=== PATIENT | male | born 1960 | race Caucasian/White ===

== ENCOUNTER 2021-03-25 20:58 | Inpatient (IN) | payer OTHER ==
[~2021-03-25] VITALS: Ht 172.7 cm; Wt 98.0 kg
--- NOTE | ~2021-03-25 | O ---
[facility] [place] [address] OPERATIVE REPORT Name: CHRISTY GARZON Room #: 458-P [facility] IN M.R.#: [id number] Admission: 03/25/21 Attend Phys: Elicia Ricardo MD Discharge: Date of : 56 Report #: [id number] THIS REPORT FOR: cc: Gerson Amaro,Jen Watts MD ~ DATE OF SERVICE: 03/27/2021 SURGEON: Jen Laureano MD SYSTEM SAFETY MANAGER: None. PREOPERATIVE DIAGNOSIS: Right distal ureteral stone, intractable pain. POSTOPERATIVE DIAGNOSIS: Right distal ureteral stone, intractable pain. PROCEDURE PERFORMED: 1. Cystoscopy. 2. Right retrograde pyelogram. 3. Balloon dilation of right distal ureter. 4. Right ureteroscopy with basket stone extraction. 5. Left double-J ureteral stent placement. ESTIMATED BLOOD LOSS: None. SPECIMENS: Right ureteral stone. COMPLICATIONS: None. DRAINS: A 6 x 26 double-J ureteral stent. NARRATIVE OF EVENTS: After proper patient identification and informed consent was obtained, the patient was brought to the operative suite and anesthesia was induced. He was prepped and draped in the usual sterile fashion in dorsal lithotomy position. After a surgical time-out, we began for rigid cystoscopy. He had a mild meatal stenosis, which I dilated with the 17-Stateless sheath. I was then able to pass the inner lumen of the 22-Stateless sheath followed by the entire scope. The remainder of the urethra was unremarkable. The prostate showed mild bilobar hypertrophy and a high riding bladder neck. Upon entering the bladder, pancystoscopy was performed. Bladder mucosa was unremarkable. We turned our attention to the right ureteral orifice. An open-ended catheter was used to perform a retrograde study. This showed a filling defect in the distal ureter and hydronephrosis above that level. I then advanced a wire into the renal pelvis under fluoroscopy. Next, we then started semirigid ureteroscope. The UVJ was quite narrow and would not allow passage of the scope. I therefore used [facility] [address] [address] OPERATIVE REPORT Name: CHRISTY GARZON Room #: 458-P [facility] IN M.R.#: [id number] Admission: 03/25/21 Attend Phys: Elicia Ricardo MD Discharge: Date of : 56 Report #: [id number] a 15 x 4 dilating balloon and dilated the distal urethra. Following this, I placed the semirigid scope without difficulty. I identified a mehta-appearing calculus within the distal ureter. This was grasped with a basket and removed without difficulty. I then placed a 6 x 26 double-J ureteral stent. There was good curl of the stent in the renal pelvis as well as the bladder upon deployment. The dangle was removed. His bladder was drained. He tolerated the procedure well and was transferred to the recovery area in stable condition. By: [id number] Jen Laureano MD /neo
[~2021-03-25 20:58] MED LIST: AZOR 10-20 MG1 EACH PO; CENTRUM SILVER1 EAC4 PO; FENOFIBRATE160 MG PO; FLOMAX PO; IBUPROFEN 800800 M1 PO; LOSARTAN-HCTZ1 EAC1 PO; TOPROL XL25 MG PO; VICODIN 5-5001 EACH PO; ZOFRAN 4 MG ORAL4 M1 SUBLING
[2021-03-25 23:40] VITALS: BP 147/83
[2021-03-26] MEDS ORDERED: FENOFIBRATE54 MG PO (02:53)
[2021-03-26] MEDS ORDERED: ASPIRIN EC81 M1 PO (02:56)
[2021-03-26] MEDS ORDERED: HYDROCHLOROTH12.5 M1 PO (02:58)
[2021-03-26] MEDS ORDERED: LOSARTAN POTAS100 MG PO (03:06)
[2021-03-26] MEDS ORDERED: LEVO-T50 MCG PO (03:08)
[2021-03-26 08:25] VITALS: BP 140/77
[2021-03-26 10:09] LABS: ABSOLUTE NEUTROPHILS 6.2 thou/uL (1.4-8.2); BASOPHILS 0.6 % (0.0-2.0); EOSINOPHILS 1.6 % (0.0-3.0); HEMOGLOBIN 15.3 gm/dL (14.0-18.0); LYMPHOCYTES 22.5 % (24.0-44.0); MCHC 34.1 g/dL (28.0-37.0); MCV 87.9 fL (80.0-100.0); MONOCYTES 9.6 % (1.0-8.0); PLATELET COUNT 226 thou/uL (150-400); POLYS 65.7 % (36.0-66.0); RBC 5.11 mil/uL (4.50-6.00); WBC 9.4 thou/uL (4.0-11.0)
[2021-03-26 10:22] LABS: ALBUMIN 3.8 g/dL (3.4-5.0); CALCIUM 8.4 mg/dL (8.5-10.1); CREATININE 1.5 mg/dL (0.7-1.3); POTASSIUM 3.4 mmol/L (3.5-5.1); TOTAL BILIRUBIN 0.5 mg/dL (0.2-1.0); TOTAL PROTEIN 7.3 g/dL (6.4-8.2)
[2021-03-26 10:23] LABS: INR 0.99; PROTIME 10.8 Seconds (10.5-12.1)
[2021-03-26 18:10] VITALS: BP 188/105
[2021-03-26 20:19] VITALS: BP 174/89
[2021-03-27] MEDS ORDERED: LOPRESSOR50 MG PO (00:23)
[2021-03-27 00:30] VITALS: BP 167/88
[2021-03-27] MEDS ORDERED: NORVASC 2.5 MG2.5 M1 PO (00:34)
[2021-03-27 06:29] LABS: HEMATOCRIT 42.3 % (42.0-52.0); HEMOGLOBIN 14.2 gm/dL (14.0-18.0); MCH 29.7 pg (26.0-34.0); MCHC 33.5 g/dL (28.0-37.0); MCV 88.7 fL (80.0-100.0); RBC 4.77 mil/uL (4.50-6.00); WBC 7.8 thou/uL (4.0-11.0)
[2021-03-27 06:42] LABS: CALCIUM 8.4 mg/dL (8.5-10.1); CREATININE 1.3 mg/dL (0.7-1.3); POTASSIUM 3.3 mmol/L (3.5-5.1)
[2021-03-27 08:30] VITALS: BP 184/105
[2021-03-27 09:48] LABS: URINE BILIRUBIN NEGATIVE (Negative); URINE BLOOD TRACE (Negative); URINE CLARITY CLEAR; URINE COLOR YELLOW; URINE GLUCOSE-RANDOM* NEGATIVE (Negative); URINE KETONES NEGATIVE (Negative); URINE LEUKOCYTES-REFLEX NEGATIVE (Negative); URINE NITRITE-REFLEX NEGATIVE (Negative); URINE PROTEIN (DIPSTICK) NEGATIVE (Negative); URINE UROBILINOGEN 0.2 E.U./dl (0.2-1.0)
[2021-03-27 15:15] VITALS: BP 151/83
[2021-03-27 16:40] VITALS: BP 135/70
[2021-03-27 19:58] VITALS: BP 156/84
[2021-03-28 07:41] VITALS: BP 133/66
[2021-03-28 10:09] LABS: CALCIUM 9.1 mg/dL (8.5-10.1); CREATININE 1.6 mg/dL (0.7-1.3); POTASSIUM 3.8 mmol/L (3.5-5.1)
[2021-03-28] MEDS ORDERED: LOPRESSOR50 MG PO (11:52)
[2021-03-28] MEDS ORDERED: AMLODIPINE BESY10 MG PO (11:52)
[2021-03-28] MEDS ORDERED: COZAAR 50 MG TA50 M1 PO (11:52)
[2021-03-28] MEDS ORDERED: HYDROCODON-ACE1 EAC7 PO (11:52)
[2021-03-28] MEDS ORDERED: KEFLEX250 MG PO (11:57)
[2021-03-28 12:18] VITALS: BP 133/66
--- NOTE | 2021-04-03 17:06 | PATH ---
[facility] [place] [address] PATHOLOGY RPT PROCEDURE Name: JAIME IGNACIO Room #: 458-P DIS IN M.R.#: [id number] Admission: 03/25/21 Date of : 56 Discharge: 03/28/21 Report #: [id number] Path Case #: [id number] [facility] Accession Number: [id number] . 01 Material submitted: . ureter - RIGHT URETERAL STONE. Modifiers: right . 02 Diagnosis: Right ureteral stone: - Consistent with calculi. - The specimen is sent out for further processing. - Report pending outside analysis with results to follow in an addendum. [facility] 03/29/2021 0729 Local . 02 Addendum: . Outside report received from [facility], [address] [place] [address], [place], [address], on case [id number], labeled with their number [id number], dated 04/03/2021. . Stone Analysis Report . Stone Composition Composition (percent) Calcium Oxalate Monohydrate 38 Calcium Oxalate Dihydrate 4 Calcium Phosphate Carbonate 58 TOTAL: 100 . The stone is 4.0 x 3.0 x 2.0 mm in size. It is emhta, cream, and brown in color and weighs less than 10 milligrams. THE CALCULUS IS COMPOSED OF A MIXTURE OF CALCIUM OXALATE MONOHYDRATE (WHEWELLITE), CALCIUM OXALATE DIHYDRATE (WEDDELITE) AND CALCIUM PHOSPHATE CARBONATE (CARBONATE-APATITE). . RIGHT URETERAL. Requisition received without date of collection. . . . Isma Becker MD Brick Offbearer . . A complete copy of the report is on file. . Technical and Professional services for the special studies performed by [facility], [address] [place] [address]. . (SWK:amj 04/03/2021) . [address] [address] PATHOLOGY RPT PROCEDURE Name: JAIME IGNACIO Room #: 458-P DIS IN M.R.#: [id number] Admission: 03/25/21 Date of : 56 Discharge: 03/28/21 Report #: [id number] Path Case #: [id number] AZJ/04/03/2021 Addendum Electronically Signed by Enrique Quinteros MD, Pathologist . 02 Electronically signed: . Enrique Quinteros MD, Pathologist NPI- [id number] . 01 Gross description: . The specimen is received fresh, labeled " Jaime Ignacio, right ureteral stone" received as 0.3 cm brown stone. The specimen is forwarded to sendouts for further processing. ([facility]; 03/28/2021) DEMOND/DEMOND 03/28/2021 2043 Local . 02 Pathologist provided ICD-10: N20.0 . 02 CPT . 190173 Specimen Comment: A courtesy copy of this report has been sent to [phone] Specimen Comment: Report sent to Performed at: [facility] [address] [place] [address] [id number] MD Rex Cristina MD Phone: [phone] Performed at: [address] [id number] MD Enrique Quinteros MD Phone: [phone]
== END 2021-03-28 12:00 | disposition home or self-care (01) | DRG 660 ==
LOC: 4E 20:58 → 4W 23:30
PROVIDERS: Hospitalist; Nurse Practitioner Family; ADMIT Internal Medicine; ATTEND Internal Medicine
DX: N13.2 Hydronephrosis with renal and ureteral calculous obstruction (principal); E87.0 Hyperosmolality and hypernatremia; N13.0 Hydronephrosis with ureteropelvic junction obstruction; E66.9 Obesity, unspecified; N18.9 Chronic kidney disease, unspecified; I12.9 Hypertensive chronic kidney disease with stage 1 through stage 4 chronic kidney disease, or unspecified chronic kidney disease; E03.9 Hypothyroidism, unspecified; N17.9 Acute kidney failure, unspecified; Z20.822 Contact with and (suspected) exposure to COVID-19; Z68.33 Body mass index [BMI] 33.0-33.9, adult; Z79.899 Other long term (current) drug therapy; Z87.891 Personal history of nicotine dependence
CPT/HCPCS: 10040; 50010; 50101; 50164; 50751; 51179; 51767; 56815; 57160; 58732; 62110; 62900; 70005